=== PATIENT | male | born 1995 | race Caucasian/White ===

== ENCOUNTER 2021-02-04 10:07 | Emergency (ER) | payer SELFPAY ==
[~2021-02-04] VITALS: Ht 188 cm; Wt 136.1 kg
[2021-02-04 10:14] VITALS: BP 137/75
[2021-02-04] MEDS ORDERED: KETOROLAC 30 MG/1 ML IM ONE (10:30)
[2021-02-04] MEDS ORDERED: KETOROLAC 30 MG/1 ML ONE (10:36)
--- NOTE | 2021-02-04 10:47 | NUR ---
AIR STIRRUP PLACED BY EMT AND CRUTCHES PROVIDED.
== END 2021-02-04 10:58 | disposition home or self-care (01) ==
LOC: ED 10:55
DX: S93.402A Sprain of unspecified ligament of left ankle, initial encounter (principal); E66.9 Obesity, unspecified; Z68.38 Body mass index [BMI] 38.0-38.9, adult; X58.XXXA Exposure to other specified factors, initial encounter; Y93.89 Activity, other specified; Y92.89 Other specified places as the place of occurrence of the external cause; Y99.8 Other external cause status
CPT/HCPCS: 73610; 96372; 99283; J1885